=== PATIENT | male | born 1945 | race Caucasian/White ===

== ENCOUNTER 2024-09-17 12:11 | Emergency (ER) | payer MEDICARE, BC ==
[~2024-09-17] VITALS: Ht 185.4 cm; Wt 81.0 kg
[~2024-09-17 12:11] MED LIST: FURO40TA4 PO; SPIR25TA5 PO
[2024-09-17 12:29] VITALS: TEMP 98
[2024-09-17 13:45] LABS: BASOPHILS # (AUTO) 0.1 X10'3 (0-0.2); BASOPHILS % (AUTO) 0.5 % (0-1); EOSINOPHILS # (AUTO) 0.1 X10'3 (0-0.9); EOSINOPHILS % (AUTO) 0.9 % (0-6); HEMATOCRIT 26.1 % (42.0-52.0); HEMOGLOBIN 8.8 g/dl (14.0-17.9); LYMPHOCYTES # (AUTO) 0.3 X10'3 (1.1-4.8); MEAN CORPUSCULAR HEMOGLOBIN 32.2 PG (27.0-31.0); MEAN CORPUSCULAR HGB CONC 33.5 g/dL (33.0-36.5); MEAN CORPUSCULAR VOLUME 96.2 FL (78-98); MEAN PLATELET VOLUME 7.8 FL (7.4-10.4); MONOCYTES # (AUTO) 0.6 X10'3 (0-0.9); MONOCYTES % (AUTO) 5.2 % (2-12); NEUTROPHILS # (AUTO) 10.1 X10'3 (1.8-7.7); NEUTROPHILS % (AUTO) 90.4 % (42-75); PLATELET COUNT 235 X10'3 (140-440); RED BLOOD COUNT 2.72 X10'6 (4.70-6.10); RED CELL DISTRIBUTION WIDTH 17.4 % (11.5-14.5); WHITE BLOOD COUNT 11.2 X10'3 (4.5-11.0)
[2024-09-17 13:49] LABS: ALBUMIN 3.4 G/DL (3.4-5.0); ANION GAP 6 (8-16); APTT 38 SECONDS (22-32); BLOOD UREA NITROGEN 35 MG/DL (7-18); BUN/CREATININE RATIO 14.9 (10.0-20.0); CALCIUM 9.6 MG/DL (8.5-10.1); CHLORIDE 98 MMOL/L (99-107); CREATININE 2.35 MG/DL (0.60-1.10); GLUCOSE 106 MG/DL (70-104); INR 1.2 INR; MAGNESIUM 2.4 MG/DL (1.5-2.4); POTASSIUM 3.9 MMOL/L (3.5-5.1); PROTHROMBIN TIME 12.3 SECONDS (9.0-12.0); SODIUM 134 MMOL/L (135-145); TOTAL CARBON DIOXIDE 29.8 MMOL/L (24-32); eCRCL 30 ML/MIN; eGFR 27 ML/MIN
[2024-09-17 16:01] LABS: COLOR,URINE RED (Yellow)
[2024-09-17 16:06] LABS: UA COLLECTION TYPE NON-SPECIFIED
[2024-09-17 16:07] LABS: CLARITY,URINE BLOODY (Clear)
[2024-09-17 16:08] LABS: BACTERIA,URINE FEW /HPF (Neg); MUCUS STRANDS NONE SEEN /LPF (Neg); RBC,URINE TNTC /HPF (0-2); SQUAMOUS EPITHELIAL CELL,UR FEW /LPF (FEW); WBC,URINE TNTC /HPF (0-4)
[2024-09-17] MEDS ORDERED: iohexol 300mg/ml 100ml inj. ONE (16:56)
[2024-09-17] MEDS ORDERED: heparin 1,000 UNITS/NS 500ml 500 ML ONE (16:56)
[2024-09-17] MEDS ORDERED: VANCOMYCIN 750MG IV in NS 250 ML IV SCH (17:00)
[2024-09-17 17:21] LABS: ALANINE AMINOTRANSFERASE 15 U/L (12-78); ALKALINE PHOSPHATASE 100 IU/L (46-116); ASPARTATE AMINO TRANSFERASE 19 U/L (10-37); BILIRUBIN,DIRECT 0.3 MG/DL (0-0.3); BILIRUBIN,TOTAL 0.7 MG/DL (0.1-1.0); TOTAL PROTEIN 6.8 G/DL (6.4-8.2)
[2024-09-17 17:39] VITALS: BP 140/43; PULSE 44; RESP 18; O2SAT 97
[2024-09-17] MEDS ORDERED: LORazepam 2 mg/ml vial IV ONE (18:25)
[2024-09-20] MEDS ORDERED: VANCOMYCIN LEVEL IV ONE (16:30)
== END 2024-09-17 18:52 | disposition admitted as inpatient to this hospital (09) ==
LOC: ER 12:11
DX: J86.9 Pyothorax without fistula (principal); I12.9 Hypertensive chronic kidney disease with stage 1 through stage 4 chronic kidney disease, or unspecified chronic kidney disease; N18.30 Chronic kidney disease, stage 3 unspecified; D64.9 Anemia, unspecified; Z86.73 Personal history of transient ischemic attack (TIA), and cerebral infarction without residual deficits; Z87.891 Personal history of nicotine dependence
CPT/HCPCS: 36415; 71045; 71250; 80048; 80076; 81001; 83605; 83735; 84145; 85025; 85610; 85730; 86885; 86900; 86901; 87040; 87088; 93005; 99285; A4615; Z7610; A4421; A6258; C1769